=== PATIENT | female | born 1940 | race Caucasian/White ===

== ENCOUNTER → 2016-06-15 | Outpatient (CLI) | payer MEDICARE ==
[~2016-06-15] MED LIST: COREG3.125 MG PO; SPIRONOLACTONE25 MG PO; VITAMIN C 500500 MG PO; ZANTAC150 MG PO; ZOCOR10 MG PO
== END ==
LOC: MAMO 09:58
DX: Z12.31 Encounter for screening mammogram for malignant neoplasm of breast (principal); Z85.3 Personal history of malignant neoplasm of breast
CPT/HCPCS: G0202

== ENCOUNTER → 2016-06-17 | Outpatient (CLI) | payer MEDICARE ==
[~2016-06-17] VITALS: Ht 152.4 cm; Wt 54.0 kg
== END ==
LOC: OPSV 13:43
DX: M81.0 Age-related osteoporosis without current pathological fracture (principal)
CPT/HCPCS: 96372

== ENCOUNTER → 2016-07-01 | Outpatient (CLI) | payer MEDICARE | LOC: LAB 10:39 | DX: M81.0 Age-related osteoporosis without current pathological fracture (principal) | CPT/HCPCS: 36415; 80069 ==

== ENCOUNTER → 2016-08-11 | Outpatient (CLI) | payer MEDICARE | LOC: LAB 11:33 | PROVIDERS: Internal Medicine Nephrology | DX: I12.9 Hypertensive chronic kidney disease with stage 1 through stage 4 chronic kidney disease, or unspecified chronic kidney disease (principal); N18.3 Chronic kidney disease, stage 3 (moderate); E83.52 Hypercalcemia; R80.9 Proteinuria, unspecified | CPT/HCPCS: 36415; 80048; 82043; 82570; 82652; 83970 ==

== ENCOUNTER → 2016-08-25 | Outpatient (CLI) | payer MEDICARE | LOC: LAB 10:45 | DX: E87.2 Acidosis (principal); N18.3 Chronic kidney disease, stage 3 (moderate); N25.81 Secondary hyperparathyroidism of renal origin | CPT/HCPCS: 36415; 82803 ==

== ENCOUNTER 2020-05-25 16:48 | Emergency (ER) | payer MEDICARE ==
[~2020-05-25 16:48] MED LIST changes: +TYLENOL 500 MG500 MG PO
[2020-05-25 17:22] LABS: HEMOGLOBIN 12.3 gm/dl (12.3-15.3); RED BLOOD COUNT 4.1 M/UL (4.00-5.10); WHITE BLOOD COUNT 10.2 K/UL (4.5-11.0)
== END 2020-05-25 21:48 | disposition home or self-care (01) ==
LOC: ER1 16:48
PROVIDERS: Emergency Medicine
DX: N39.0 Urinary tract infection, site not specified (principal); E86.0 Dehydration; N18.9 Chronic kidney disease, unspecified; Z88.2 Allergy status to sulfonamides; Z90.49 Acquired absence of other specified parts of digestive tract
CPT/HCPCS: 36415; 80053; 81001; 85025; 87086; 96374; 96375; 99284; J2270; J2405; J7030; Q9967

== ENCOUNTER 2020-05-27 09:39 | Emergency (ER) | payer MEDICARE ==
[~2020-05-27] VITALS: Ht 160 cm; Wt 47.6 kg
[2020-05-27 11:23] LABS: HEMOGLOBIN 11.1 gm/dl (12.3-15.3); RED BLOOD COUNT 3.73 M/UL (4.00-5.10); WHITE BLOOD COUNT 11.1 K/UL (4.5-11.0)
[2020-05-27] MEDS ORDERED: ONDANSETRON ODT4 MG SL (16:37)
[2020-05-27] MEDS ORDERED: CEFUROXIME500 MG PO (16:37)
[2020-05-27] MEDS ORDERED: OMNICEF 300 MG300 MG PO (16:42)
== END 2020-05-27 18:24 | disposition home or self-care (01) ==
LOC: ER1 09:39
PROVIDERS: Physician Assistant
DX: N17.9 Acute kidney failure, unspecified (principal); N39.0 Urinary tract infection, site not specified; E86.0 Dehydration; I10 Essential (primary) hypertension; E78.5 Hyperlipidemia, unspecified; G62.9 Polyneuropathy, unspecified; Z85.3 Personal history of malignant neoplasm of breast; Z90.49 Acquired absence of other specified parts of digestive tract; Z88.2 Allergy status to sulfonamides; Z79.899 Other long term (current) drug therapy
CPT/HCPCS: 36415; 80053; 81001; 85025; 96374; 96376; 99284; J2405; J7030

== ENCOUNTER → 2020-07-29 | Outpatient (CLI) | payer MEDICARE ==
[~2020-07-29] MED LIST changes: +CEFUROXIME500 MG PO; +OMNICEF 300 MG300 MG PO; +ONDANSETRON ODT4 MG SL
[2020-07-30 10:14] LABS: CREATININE, URINE 36.1 mg/dL (Not Estab.)
== END ==
LOC: LAB 09:29
PROVIDERS: Internal Medicine Nephrology
DX: N18.30 Chronic kidney disease, stage 3 unspecified (principal)
CPT/HCPCS: 36415; 80048; 82043; 82570

== ENCOUNTER → 2020-09-18 | Outpatient (CLI) | payer MEDICARE ==
[~2020-09-18] VITALS: Ht 152.4 cm; Wt 47.6 kg
== END ==
LOC: OPSV 12:00
DX: M81.0 Age-related osteoporosis without current pathological fracture (principal); N18.30 Chronic kidney disease, stage 3 unspecified
CPT/HCPCS: 96372; J3111

== ENCOUNTER → 2020-10-16 | Outpatient (CLI) | payer MEDICARE ==
[~2020-10-16] VITALS: Ht 152.4 cm; Wt 47.6 kg
== END ==
LOC: OPSV 11:59
DX: I11.9 Hypertensive heart disease without heart failure (principal); N18.30 Chronic kidney disease, stage 3 unspecified; E83.52 Hypercalcemia; E83.30 Disorder of phosphorus metabolism, unspecified; M81.0 Age-related osteoporosis without current pathological fracture
CPT/HCPCS: 96372; J3111

== ENCOUNTER → 2020-10-21 | Outpatient (CLI) | payer MEDICARE | LOC: MAMO 11:30 | DX: Z12.31 Encounter for screening mammogram for malignant neoplasm of breast (principal) | CPT/HCPCS: 77063; 77067 ==

== ENCOUNTER → 2020-11-13 | Outpatient (CLI) | payer MEDICARE ==
[~2020-11-13] VITALS: Ht 152.4 cm; Wt 47.6 kg
== END ==
LOC: OPSV 11:16
DX: M81.0 Age-related osteoporosis without current pathological fracture (principal); N18.30 Chronic kidney disease, stage 3 unspecified
CPT/HCPCS: 96372; J3111

== ENCOUNTER → 2020-12-16 | Outpatient (CLI) | payer MEDICARE ==
[~2020-12-16] VITALS: Ht 152.4 cm; Wt 47.6 kg
== END ==
LOC: OPSV 10:55
DX: I12.9 Hypertensive chronic kidney disease with stage 1 through stage 4 chronic kidney disease, or unspecified chronic kidney disease (principal); N18.9 Chronic kidney disease, unspecified; E83.52 Hypercalcemia; M81.0 Age-related osteoporosis without current pathological fracture; E83.30 Disorder of phosphorus metabolism, unspecified
CPT/HCPCS: 96372; J3111

== ENCOUNTER → 2020-12-24 | Outpatient (CLI) | payer MEDICARE ==
[2020-12-25 10:13] LABS: CREATININE, URINE 32.5 mg/dL (Not Estab.)
== END ==
LOC: LAB 12:31
PROVIDERS: Internal Medicine Nephrology
DX: N18.30 Chronic kidney disease, stage 3 unspecified (principal)
CPT/HCPCS: 36415; 80048; 81001; 82043; 82570

== ENCOUNTER → 2021-01-15 | Outpatient (CLI) | payer MEDICARE ==
[~2021-01-15] VITALS: Ht 152.4 cm; Wt 47.6 kg
== END ==
LOC: OPSV 12:00
DX: M81.0 Age-related osteoporosis without current pathological fracture (principal); I12.9 Hypertensive chronic kidney disease with stage 1 through stage 4 chronic kidney disease, or unspecified chronic kidney disease; N18.30 Chronic kidney disease, stage 3 unspecified; E83.52 Hypercalcemia; E83.30 Disorder of phosphorus metabolism, unspecified
CPT/HCPCS: 96372; J3111

== ENCOUNTER → 2021-01-23 | Outpatient (CLI) | payer MEDICARE | LOC: LAB 09:27 | PROVIDERS: Internal Medicine Nephrology | DX: R80.9 Proteinuria, unspecified (principal) | CPT/HCPCS: 36415; 80048 ==

== ENCOUNTER → 2021-01-30 | Outpatient (CLI) | payer MEDICARE | LOC: LAB 14:08 | PROVIDERS: Internal Medicine Nephrology | DX: N18.32 Chronic kidney disease, stage 3b (principal) | CPT/HCPCS: 36415; 80048 ==

== ENCOUNTER → 2021-02-12 | Outpatient (CLI) | payer MEDICARE ==
[~2021-02-12] VITALS: Ht 152.4 cm; Wt 47.6 kg
== END ==
LOC: OPSV 11:23
DX: I12.9 Hypertensive chronic kidney disease with stage 1 through stage 4 chronic kidney disease, or unspecified chronic kidney disease (principal); N18.30 Chronic kidney disease, stage 3 unspecified; E83.52 Hypercalcemia; E83.30 Disorder of phosphorus metabolism, unspecified; M81.0 Age-related osteoporosis without current pathological fracture
CPT/HCPCS: 96365; J3111

== ENCOUNTER → 2021-03-12 | Outpatient (CLI) | payer MEDICARE ==
[~2021-03-12] VITALS: Ht 152.4 cm; Wt 47.6 kg
== END ==
LOC: OPSV 10:48
DX: I12.9 Hypertensive chronic kidney disease with stage 1 through stage 4 chronic kidney disease, or unspecified chronic kidney disease (principal); N18.30 Chronic kidney disease, stage 3 unspecified; E83.52 Hypercalcemia; E83.30 Disorder of phosphorus metabolism, unspecified; M81.0 Age-related osteoporosis without current pathological fracture
CPT/HCPCS: 96372; J3111

== ENCOUNTER → 2021-04-21 | Outpatient (CLI) | payer MEDICARE ==
[~2021-04-21] VITALS: Ht 152.4 cm; Wt 47.6 kg
== END ==
LOC: OPSV 04-14 11:00
DX: I12.9 Hypertensive chronic kidney disease with stage 1 through stage 4 chronic kidney disease, or unspecified chronic kidney disease (principal); N18.30 Chronic kidney disease, stage 3 unspecified; E83.52 Hypercalcemia; E83.30 Disorder of phosphorus metabolism, unspecified; M81.0 Age-related osteoporosis without current pathological fracture
CPT/HCPCS: 96372; J3111

== ENCOUNTER → 2021-04-28 | Outpatient (CLI) | payer MEDICARE ==
[2021-04-30 12:14] LABS: CREATININE, URINE 25.7 mg/dL (Not Estab.)
== END ==
LOC: LAB 14:09
PROVIDERS: Internal Medicine Nephrology
DX: N18.32 Chronic kidney disease, stage 3b (principal)
CPT/HCPCS: 36415; 80048; 81001; 82043; 82570

== ENCOUNTER → 2021-04-30 | Outpatient (CLI) | payer MEDICARE | LOC: LAB 11:09 | PROVIDERS: Internal Medicine Nephrology | DX: N18.32 Chronic kidney disease, stage 3b (principal) | CPT/HCPCS: 36415; 80048 ==

== ENCOUNTER → 2021-05-19 | Outpatient (CLI) | payer MEDICARE ==
[~2021-05-19] VITALS: Ht 152.4 cm; Wt 47.6 kg
== END ==
LOC: OPSV 11:00
DX: I12.9 Hypertensive chronic kidney disease with stage 1 through stage 4 chronic kidney disease, or unspecified chronic kidney disease (principal); N18.30 Chronic kidney disease, stage 3 unspecified; E83.52 Hypercalcemia; E83.30 Disorder of phosphorus metabolism, unspecified; M81.0 Age-related osteoporosis without current pathological fracture
CPT/HCPCS: 96372; J3111

== ENCOUNTER → 2021-06-04 | Outpatient (CLI) | payer MEDICARE | LOC: LAB 13:37 | PROVIDERS: Internal Medicine Nephrology | DX: E87.5 Hyperkalemia (principal) | CPT/HCPCS: 36415; 80048 ==

== ENCOUNTER → 2021-07-16 | Outpatient (CLI) | payer MEDICARE ==
[~2021-07-16] VITALS: Ht 152.4 cm; Wt 47.6 kg
== END ==
LOC: OPSV 10:59
DX: M81.0 Age-related osteoporosis without current pathological fracture (principal); N18.30 Chronic kidney disease, stage 3 unspecified
CPT/HCPCS: 96372; J3111

== ENCOUNTER → 2021-07-24 | Outpatient (CLI) | payer MEDICARE | LOC: RT 14:24 | DX: Z01.810 Encounter for preprocedural cardiovascular examination (principal); I49.1 Atrial premature depolarization | CPT/HCPCS: 93005 ==

== ENCOUNTER → 2021-09-02 | Outpatient (CLI) | payer MEDICARE ==
[2021-09-03 12:58] LABS: CREATININE, URINE 43.1 mg/dL (Not Estab.)
== END ==
LOC: LAB 10:14
PROVIDERS: Internal Medicine Nephrology
DX: N18.32 Chronic kidney disease, stage 3b (principal)
CPT/HCPCS: 36415; 80048; 82043; 82570

== ENCOUNTER → 2021-09-22 | Outpatient (CLI) | payer MEDICARE | LOC: LAB 12:03 | DX: M81.0 Age-related osteoporosis without current pathological fracture (principal) | CPT/HCPCS: 36415 ==

== ENCOUNTER → 2021-10-27 | Outpatient (CLI) | payer MEDICARE | LOC: MAMO 13:30 | DX: Z12.31 Encounter for screening mammogram for malignant neoplasm of breast (principal); Z85.3 Personal history of malignant neoplasm of breast; Z98.890 Other specified postprocedural states | CPT/HCPCS: 77063; 77067 ==